=== PATIENT | male | born 1970 | race Caucasian/White ===

== ENCOUNTER 2025-05-31 15:12 | Outpatient (CLI) | payer SELFPAY ==
--- NOTE | 2025-05-31 15:46 | XR_ITS ---
WS: [id number] Right knee, 3 views, 05/31/2025 Clinical Data: BILATERAL KNEE PAIN Comparison: None. Findings: No fractures or dislocations are seen. There is medial joint compartment narrowing with spurring of the lateral tibial plateau. The posterior right patella shows irregularity and spurring with narrowing of the patellofemoral joint space. The patella shows a defect of the upper outer aspect which may be congenital or from an old injury. The soft tissues are unremarkable. XR/XR knee RT 3V* [id number] Impression: Osteoarthritis of the right knee with medial joint compartment narrowing and ir regular posterior right patella.
--- NOTE | 2025-05-31 15:46 | XR_ITS ---
WS: [id number] Left knee, 3 views, 05/31/2025 Clinical Data: BILATERAL KNEE PAIN Comparison: None. Findings: No fractures or dislocations are seen. There is medial joint compartment narrowing. There may be a loose body in the midportion of the left knee adjacent to the lateral tibial spine. The left patella shows irregularity with an anterior superior spur. The soft tissues are unremarkable. XR/XR knee LT 3V* [id number] Impression: 1. Medial joint compartment narrowing with irregular posterior left patellar valverde rface. 2. Possible loose body in central joint space.
== END 2025-05-31 15:13 | disposition home or self-care (01) ==
LOC: RAD 15:21
PROVIDERS: PCP Family Medicine; Visit Provider Family Medicine
DX: M25.562 Pain in left knee (principal); M25.561 Pain in right knee; M17.11 Unilateral primary osteoarthritis, right knee; M25.861 Other specified joint disorders, right knee; M25.862 Other specified joint disorders, left knee
CPT/HCPCS: 73562